=== PATIENT | female | born 1935 | race Caucasian/White ===

== ENCOUNTER 2019-07-20 09:28 | Inpatient (IN) ==
[2019-07-20] MEDS ORDERED: CeFAZolin Syr 2,000MG/20 ML 2,000 MG/20 ML SYRINGE IVPB ONE (09:51)
[2019-07-20] MEDS ORDERED: Albuterol 2.5 MG/3 ML NEBULIZER IH PRN (09:51)
[2019-07-20] MEDS ORDERED: Albuterol 2.5 MG/3 ML NEBULIZER ONE (09:59)
[2019-07-20] MEDS ORDERED: Ringers Solution, Lactated 1,000 ML IVC SCH ×2 (10:00→14:08)
[2019-07-20] MEDS ORDERED: Acetaminophen IV 1,000 MG/100 ML INFUS..BTL IVPB ONE (10:01)
[2019-07-20] MEDS ORDERED: Famotidine 20 MG/2 ML VIAL IVP ONE (10:01)
[2019-07-20] MEDS ORDERED: *HR* HYDROmorphone 2 MG TABLET PO PRN (10:03)
[2019-07-20] MEDS ORDERED: *HR* Promethazine 25 MG/ML VIAL IVP PRN (10:03)
[2019-07-20] MEDS ORDERED: *HR* Labetalol 20 MG/4 ML SYRINGE IVP PRN (10:03)
[2019-07-20] MEDS ORDERED: Lidocaine -MPF 2% 2 ML VIAL ONE ×2 (10:18→10:19)
[2019-07-20] MEDS ORDERED: *HR* FentaNYL (PF) 100 MCG/2 ML VIAL ONE (10:18)
[2019-07-20] MEDS ORDERED: Ondansetron 4 MG/2 ML VIAL ONE (10:18)
[2019-07-20] MEDS ORDERED: Dexamethasone 4 MG/ML VIAL ONE (10:18)
[2019-07-20] MEDS ORDERED: *HR* Propofol 200 MG/20 ML VIAL IVP ONE (10:19)
[2019-07-20] MEDS ORDERED: Lidocaine HCL 4 ML Topical Solution (Laryng-O-Jet Kit Sterile Pak) TP ONE (10:23)
[2019-07-20] MEDS ORDERED: ROPIVACAINE/PF/NS 0.25% 1 EACH SYRINGE INTRAART ONE (10:45)
[2019-07-20] MEDS ORDERED: Ropivacaine/PF 0.5% 30 ML VIAL ONE (10:45)
[2019-07-20 11:15] LABS: Basophils % 0.2 %; Eosinophils % 0.1 %; Hematocrit 43.7 % (35.3-44.9); Hemoglobin 14.5 g/dL (11.5-15.4); Immature Granulocytes % 0.6 % (0-4); Lymphocytes # 1.4 K/mcL (0.6-4.6); Lymphocytes % 13.7 %; Mean Corpuscular HGB Conc 33.2 g/dL (31.6-35.5); Mean Corpuscular Hemoglobin 30.1 pg (28.0-33.3); Mean Corpuscular Volume 90.7 fL (83.0-100.0); Mean Platelet Volume 10.5 fL (9.4-12.4); Monocytes # 0.3 K/mcL (0.0-1.3); Monocytes % 3.2 %; Neutrophils # 8.5 K/mcL (1.6-8.9); Platelet Count 224 K/mcL (140-400); Red Blood Count 4.82 M/mcL (3.82-4.97); Red Cell Distribution Width 14.9 % (11.5-14.5); Segmented Neutrophils % 82.2 %; White Blood Count 10.3 K/mcL (4.3-11.1)
[2019-07-20 11:36] LABS: BUN/Creatinine Ratio 23 (6-26); Blood Urea Nitrogen 19 mg/dL (8-23); Calcium 9.2 mg/dL (8.6-10.3); Carbon Dioxide 24 mEq/L (23-29); Chloride 103 mEq/L (98-107); Glucose 95 mg/dL (70-105); Osmolality,Calculated 288 (280-300); Potassium 3.8 mEq/L (3.5-5.1); Sodium 138 mEq/L (136-145); eGFR For African Americans > 60 (> 60); eGFR For Non-African Americans > 60 (> 60)
[2019-07-20] MEDS: *HR* OxyCODONE Immed Rel 5 MG TABLET PO PRN ×2 (13:11→13:16)
[2019-07-20 13:22] LABS: Hemoglobin 12.8 g/dL (11.5-15.4)
[2019-07-20] MEDS ORDERED: Ringers Solution, Lactated 1,000 ML ONE (13:32)
[2019-07-20] MEDS ORDERED: MOM Conc 10 ML UD.LIQ PO PRN (14:08)
[2019-07-20] MEDS ORDERED: MAGNESIUM HYDROXIDE 1200 MG PO PRN (14:08)
[2019-07-20] MEDS ORDERED: Sennosides 8.6 MG TABLET PO PRN (14:08)
[2019-07-20] MEDS ORDERED: Ondansetron 4 MG/2 ML VIAL IVP PRN (14:08)
[2019-07-20] MEDS ORDERED: Naloxone 0.4 MG/ML INJ IVP PRN (14:08)
[2019-07-20] MEDS: ceFAZolin 2,000 MG in 0.9 % Sodium Chloride 100 ML IVPB SCH (16:38)
[2019-07-20] MEDS: *HR* Enoxaparin 30 MG/0.3 ML SYRINGE SQ SCH (16:45)
[2019-07-20] MEDS ORDERED: *HR* Enoxaparin 30 MG/0.3 ML SYRINGE SQ SCH (18:00)
[2019-07-20] MEDS: Budesonide/Formoterol 160/4.5 1 PUFF INH IH SCH (20:25)
[2019-07-20] MEDS: Tiotropium 18 MCG inhalation IH SCH (20:25)
[2019-07-21] MEDS: ceFAZolin 2,000 MG in 0.9 % Sodium Chloride 100 ML IVPB SCH (00:46)
[2019-07-21] MEDS: Albuterol 2.5 MG/3 ML NEBULIZER IH PRN ×3 (00:52→20:21)
[2019-07-21 05:00] LABS: Hematocrit 34.9 % (35.3-44.9); Hemoglobin 11.4 g/dL (11.5-15.4)
[2019-07-21 05:20] LABS: BUN/Creatinine Ratio 21 (6-26); Blood Urea Nitrogen 22 mg/dL (8-23); Calcium 8.4 mg/dL (8.6-10.3); Carbon Dioxide 26 mEq/L (23-29); Chloride 100 mEq/L (98-107); Glucose 132 mg/dL (70-105); Osmolality,Calculated 287 (280-300); Potassium 4.6 mEq/L (3.5-5.1); Sodium 136 mEq/L (136-145); eGFR For African Americans > 60 (> 60); eGFR For Non-African Americans 50 (> 60)
[2019-07-21] MEDS: *HR* Enoxaparin 30 MG/0.3 ML SYRINGE SQ SCH ×2 (06:17→18:05)
[2019-07-21] MEDS: Budesonide/Formoterol 160/4.5 1 PUFF INH IH SCH ×2 (07:56→20:15)
[2019-07-21] MEDS: predniSONE 10 MG TABLET PO SCH (09:39)
[2019-07-21] MEDS: amLODIPine 5 MG TABLET PO SCH (09:40)
[2019-07-21] MEDS: Multivit/Ca/Min/Fe/FA 1 TAB TABLET PO SCH (09:40)
[2019-07-21] MEDS: Furosemide 20 MG TABLET PO SCH (09:41)
[2019-07-21] MEDS: *HR* OxyCODONE Immed Rel 5 MG TABLET PO PRN (15:12)
[2019-07-21] MEDS: Tiotropium 18 MCG inhalation IH SCH (20:16)
[2019-07-21] MEDS: *HR* OxyCODONE/APAP 5/325 TABLET PO PRN (23:10)
[2019-07-22 03:51] LABS: Hematocrit 35.4 % (35.3-44.9); Hemoglobin 11.7 g/dL (11.5-15.4)
[2019-07-22 04:02] LABS: Calcium 8.9 mg/dL (8.6-10.3); Potassium 4.2 mEq/L (3.5-5.1)
[2019-07-22] MEDS: *HR* Enoxaparin 30 MG/0.3 ML SYRINGE SQ SCH ×2 (05:45→17:08)
[2019-07-22] MEDS: *HR* OxyCODONE Immed Rel 5 MG TABLET PO PRN (05:45)
[2019-07-22] MEDS: Budesonide/Formoterol 160/4.5 1 PUFF INH IH SCH ×2 (08:25→21:21)
[2019-07-22] MEDS: Multivit/Ca/Min/Fe/FA 1 TAB TABLET PO SCH (08:49)
[2019-07-22] MEDS: amLODIPine 5 MG TABLET PO SCH (08:49)
[2019-07-22] MEDS: Furosemide 20 MG TABLET PO SCH (08:49)
[2019-07-22] MEDS: predniSONE 10 MG TABLET PO SCH (08:49)
[2019-07-22] MEDS: Ringers Solution, Lactated 1,000 ML IVC SCH ×2 (10:18→18:24)
[2019-07-22] MEDS ORDERED: DiphenhydraMINE CREAM 28.4 GM TUBE TP PRN (13:51)
[2019-07-22 17:05] LABS: Calcium 8.9 mg/dL (8.6-10.3); Potassium 4.1 mEq/L (3.5-5.1)
[2019-07-22] MEDS: *HR* OxyCODONE/APAP 5/325 TABLET PO PRN (17:06)
[2019-07-23] MEDS: Tiotropium 18 MCG inhalation IH SCH (03:55)
[2019-07-23] MEDS: *HR* Enoxaparin 30 MG/0.3 ML SYRINGE SQ SCH (06:29)
[2019-07-23 07:13] LABS: Hematocrit 32.7 % (35.3-44.9); Hemoglobin 10.8 g/dL (11.5-15.4)
[2019-07-23 07:26] LABS: BUN/Creatinine Ratio 26 (6-26); Blood Urea Nitrogen 22 mg/dL (8-23); Calcium 8.8 mg/dL (8.6-10.3); Carbon Dioxide 29 mEq/L (23-29); Chloride 99 mEq/L (98-107); Glucose 83 mg/dL (70-105); Osmolality,Calculated 292 (280-300); Potassium 3.3 mEq/L (3.5-5.1); Sodium 140 mEq/L (136-145); eGFR For African Americans > 60 (> 60); eGFR For Non-African Americans > 60 (> 60)
[2019-07-23] MEDS: Budesonide/Formoterol 160/4.5 1 PUFF INH IH SCH (07:41)
[2019-07-23] MEDS: amLODIPine 5 MG TABLET PO SCH (08:26)
[2019-07-23] MEDS: Multivit/Ca/Min/Fe/FA 1 TAB TABLET PO SCH (08:27)
[2019-07-23] MEDS: predniSONE 10 MG TABLET PO SCH (08:27)
[2019-07-23 10:58] VITALS: BP 153/84
[2019-07-25] MEDS ORDERED: NON-FORMULARY MEDICATION 1 EACH EACH (Alendronate Sodium 70 MG) PO SCH (11:35)
== END 2019-07-23 12:59 | DRG 322 ==
LOC: SAMDAY 09:28 → 3NENU 14:08
PROVIDERS: ADMIT Orthopaedic Surgery; ATTEND Orthopaedic Surgery

== ENCOUNTER 2021-06-28 23:07 | Inpatient (IN) ==
[2021-06-28] MEDS ORDERED: Isovue-370 500 ML BOTTLE IVP ONE (23:13)
[2021-06-28 23:46] LABS: Hematocrit 45.2 % (35.3-44.9); Hemoglobin 14.3 g/dL (11.5-15.4); Mean Corpuscular HGB Conc 31.6 g/dL (31.6-35.5); Mean Corpuscular Hemoglobin 29.7 pg (28.0-33.3); Mean Platelet Volume 10.2 fL (9.4-12.4); Platelet Count 159 K/mcL (140-400); Red Blood Count 4.81 M/mcL (3.82-4.97); Red Cell Distribution Width 15.7 % (11.5-14.5); White Blood Count 7.7 K/mcL (4.3-11.1)
[2021-06-28 23:48] LABS: INR 1.1; Prothrombin Time 12.2 Seconds (9.4-12.1)
[2021-06-28 23:51] LABS: Activated Partial Thrombo Time 26.4 Seconds (26.0-36.0)
[2021-06-29] LABS: BUN/Creatinine Ratio 21 (6-26); Blood Urea Nitrogen 21 mg/dL (8-23); Calcium 8.6 mg/dL (8.6-10.3); Carbon Dioxide 32 mEq/L (23-29); Chloride 93 mEq/L (98-107); Ethanol < 10 mg/dL (Less than 10); Glucose 110 mg/dL (70-105); Osmolality,Calculated 284 (280-300); Potassium 4.3 mEq/L (3.5-5.1); Sodium 135 mEq/L (136-145); eGFR For African Americans > 60 (> 60); eGFR For Non-African Americans 52 (> 60)
[2021-06-29 00:19] LABS: Influenza A PCR Negative (Negative); Influenza B PCR Negative (Negative); Resp. Syncytial Virus PCR Negative (Negative)
[2021-06-29 00:19] LABS: Troponin I 0.04 ng/mL (< 0.04)
[2021-06-29 00:21] LABS: SARS-CoV-2 by PCR (In House) Negative (Negative)
[2021-06-29 00:41] LABS: Bacteria,Urine Few per hpf (None-Few); Bilirubin,Urine Negative (Negative); Blood,Urine Trace (Negative); Clarity,Urine Clear (Clear); Color,Urine Light-Yellow (Yellow); Glucose,Urine (UA) Normal (Normal); Ketones,Urine Negative (Negative); Leukocyte Esterase,Urine Trace (Negative); Mucus,Urine Few per lpf (None-Few); Nitrite,Urine Negative (Negative); PH,Urine 5.5 pH Units (5.0-8.0); Protein,Urine Negative (Neg-Trace); RBC,Urine 0-3 per hpf (0-3); Specific Gravity,Urine 1.008 (1.010-1.025); Squamous Epithelial Cell,Urine Few per hpf (None-Few); Urobilinogen,Urine Normal (Normal)
[2021-06-29 00:49] LABS: Amphetamine Screen,Urine Negative ng/mL (Cutoff=1000); Barbiturate Screen,Urine Negative ng/mL (Cutoff=200); Benzodiazepines Screen,Urine Negative ng/mL (Cutoff=200); Cannabinoid Screen,Urine Negative ng/mL (Cutoff = 50); Cocaine Screen,Urine Negative ng/mL (Cutoff= 300); Opiate Screen,Urine Negative ng/mL (Cutoff=300); Phencyclidine Screen,Urine Negative ng/mL (Cutoff=25)
[2021-06-29] MEDS ORDERED: cefTRIAXone 1,000 MG in Water for inj. (sterile) 10 ML IVP ONE (01:23)
[2021-06-29] MEDS ORDERED: Perflutren Lipid Microsphere 1.3 ML in 0.9 % Sodium Chloride 8.7 ML IVP PRN ×2 (02:53→13:09)
[2021-06-29] MEDS ORDERED: Naloxone 0.4 MG/ML INJ IVP PRN (02:53)
[2021-06-29 06:19] LABS: INR 1.1; Prothrombin Time 11.9 Seconds (9.4-12.1)
[2021-06-29 06:34] LABS: Chol/HDL Ratio 2.3 (0-4.9)
[2021-06-29 06:37] LABS: Alanine Aminotransferase 34 Units/L (7-52); Albumin 3.9 g/dL (3.5-5.7); Albumin/Globulin Ratio 1.9 (1.1-2.2); Alkaline Phosphatase 39 Units/L (34-104); Aspartate Amino Transferase 17 Units/L (13-39); BUN/Creatinine Ratio 21 (6-26); Bilirubin,Total 0.6 mg/dL (0.3-1.0); Blood Urea Nitrogen 21 mg/dL (8-23); Calcium 8.9 mg/dL (8.6-10.3); Carbon Dioxide 31 mEq/L (23-29); Chloride 96 mEq/L (98-107); Chol/HDL Ratio 2.3 (0-4.9); Cholesterol 244 mg/dL (< 200); Globulin 2.1 g/dL (2.4-3.5); Glucose 81 mg/dL (70-105); HDL Cholesterol 105 mg/dL (40-59); LDL Cholesterol,Calculated 111 mg/dL (< 100); Osmolality,Calculated 286 (280-300); Potassium 3.7 mEq/L (3.5-5.1); Sodium 137 mEq/L (136-145); Triglycerides 139 mg/dL (< 150); Troponin I 0.05 ng/mL (< 0.04); eGFR For African Americans > 60 (> 60); eGFR For Non-African Americans 52 (> 60)
[2021-06-29 06:45] LABS: Thyroid Stimulating Hormone 3.179 mcIU/mL (0.340-5.600)
[2021-06-29 08:32] LABS: Estimated Average Glucose 134 mg/dl; Hemoglobin A1C 6.3 %
[2021-06-29] MEDS ORDERED: lisinopriL 10 MG TABLET PO SCH (09:00)
[2021-06-29 11:15] LABS: Folate 16.3 ng/mL (3.0-16.0)
[2021-06-29] MEDS ORDERED: Ipratropium/Albuterol Neb 3 ML ONE (15:35)
[2021-06-29] MEDS: Ipratropium/Albuterol Neb 3 ML IH PRN (15:39)
[2021-06-30 02:21] LABS: Hematocrit 45.8 % (35.3-44.9); Hemoglobin 14.4 g/dL (11.5-15.4); Mean Corpuscular HGB Conc 31.4 g/dL (31.6-35.5); Mean Corpuscular Hemoglobin 29.4 pg (28.0-33.3); Mean Corpuscular Volume 93.7 fL (83.0-100.0); Mean Platelet Volume 10.6 fL (9.4-12.4); Platelet Count 158 K/mcL (140-400); Red Blood Count 4.89 M/mcL (3.82-4.97); White Blood Count 7.4 K/mcL (4.3-11.1)
[2021-06-30 02:27] LABS: BUN/Creatinine Ratio 20 (6-26); Blood Urea Nitrogen 19 mg/dL (8-23); Calcium 8.8 mg/dL (8.6-10.3); Carbon Dioxide 29 mEq/L (23-29); Chloride 98 mEq/L (98-107); Glucose 75 mg/dL (70-105); Osmolality,Calculated 285 (280-300); Potassium 3.5 mEq/L (3.5-5.1); Sodium 137 mEq/L (136-145); eGFR For African Americans > 60 (> 60); eGFR For Non-African Americans 57 (> 60)
[2021-06-30] MEDS: *HR* Enoxaparin 40 MG/0.4 ML SYRINGE SQ SCH (05:41)
[2021-06-30] MEDS: Ipratropium/Albuterol Neb 3 ML IH PRN ×3 (07:58→16:06)
[2021-06-30] MEDS ORDERED: Furosemide 20 MG/2 ML VIAL IVP ONE (08:18)
[2021-06-30] MEDS: predniSONE 20 MG TABLET PO SCH (08:31)
[2021-06-30] MEDS: Azithromycin 500 MG in 0.9 % Sodium Chloride 250 ML IVPB SCH (08:34)
[2021-06-30] MEDS: cefTRIAXone 1,000 MG in 0.9 % Sodium Chloride Mini Bag 100 ML IVPB SCH (08:34)
[2021-07-01] MEDS: *HR* Enoxaparin 40 MG/0.4 ML SYRINGE SQ SCH (05:31)
[2021-07-01] MEDS: cefTRIAXone 1,000 MG in 0.9 % Sodium Chloride Mini Bag 100 ML IVPB SCH (08:15)
[2021-07-01] MEDS: amLODIPine 5 MG TABLET PO SCH (08:15)
[2021-07-01] MEDS: predniSONE 20 MG TABLET PO SCH (08:15)
[2021-07-01] MEDS: Azithromycin 500 MG in 0.9 % Sodium Chloride 250 ML IVPB SCH (08:16)
[2021-07-01] MEDS: Ipratropium/Albuterol Neb 3 ML IH PRN (09:26)
[2021-07-01 10:59] LABS: Adenovirus Not Detected (Not Detect); Coronavirus 229E Not Detected (Not Detect); Coronavirus HKU1 Not Detected (Not Detect); Coronavirus NL63 Not Detected (Not Detect); Coronavirus OC43 Not Detected (Not Detect); Human Metapneumovirus Not Detected (Not Detect); Human Rhinovirus/Enterovirus Not Detected (Not Detect); Influenza A Subtype 2009 H1 Not Detected (Not Detect); Influenza B Not Detected (Not Detect)
[2021-07-01 11:00] LABS: Bordetella Pertussis Not Detected (Not Detect); Chlamydophila pneumoniae Not Detected (Not Detect); Mycoplasma pneumoniae Not Detected (Not Detect); Parainfluenza Virus 1 Not Detected (Not Detect); Parainfluenza Virus 2 Not Detected (Not Detect); Parainfluenza Virus 3 Not Detected (Not Detect); Parainfluenza Virus 4 Not Detected (Not Detect); Respiratory Syncytial Virus Not Detected (Not Detect)
[2021-07-01 11:02] LABS: SARS-CoV-2 DETECTED (Not Detect)
[2021-07-01] MEDS ORDERED: Ipratropium/Albuterol Neb 3 ML IH SCH (12:15)
[2021-07-01] MEDS: Ipratropium 1 PUFF INHALER IH SCH ×3 (15:50→23:40)
[2021-07-02] MEDS: Ipratropium 1 PUFF INHALER IH SCH ×7 (03:53→23:34)
[2021-07-02] MEDS: *HR* Enoxaparin 40 MG/0.4 ML SYRINGE SQ SCH (05:51)
[2021-07-02] MEDS: amLODIPine 5 MG TABLET PO SCH (08:04)
[2021-07-02] MEDS: predniSONE 20 MG TABLET PO SCH (08:04)
[2021-07-02] MEDS: cefTRIAXone 1,000 MG in 0.9 % Sodium Chloride Mini Bag 100 ML IVPB SCH (08:05)
[2021-07-02] MEDS: Azithromycin 500 MG in 0.9 % Sodium Chloride 250 ML IVPB SCH (08:25)
[2021-07-02 10:32] LABS: Hemoglobin 14.4 g/dL (11.5-15.4); Mean Corpuscular Hemoglobin 29.7 pg (28.0-33.3); Mean Corpuscular Volume 92.8 fL (83.0-100.0); Mean Platelet Volume 10.5 fL (9.4-12.4); Platelet Count 172 K/mcL (140-400); Red Blood Count 4.85 M/mcL (3.82-4.97); Red Cell Distribution Width 15.9 % (11.5-14.5)
[2021-07-02 10:33] LABS: White Blood Count 11.6 K/mcL (4.3-11.1)
[2021-07-02 10:52] LABS: Calcium 8.4 mg/dL (8.6-10.3); Potassium 3.4 mEq/L (3.5-5.1)
[2021-07-02 11:16] LABS: ABG Base Excess 2 mEq/L (-2 to 3); ABG HCO3 27 mEq/L (21-27); ABG Oxygen Saturation 93 % (95-98); ABG PCO2 40 mmHg (35-45); ABG PH 7.43 pH Units (7.32-7.45); ABG PO2 64 mmHg (85-104); ABG TCO2 28 mEq/L (20-26)
[2021-07-02] MEDS ORDERED: Acetaminophen 325 MG TABLET PO PRN (16:33)
[2021-07-03] MEDS: Ipratropium 1 PUFF INHALER IH SCH ×6 (03:39→23:45)
[2021-07-03] MEDS: *HR* Enoxaparin 40 MG/0.4 ML SYRINGE SQ SCH (06:08)
[2021-07-03] MEDS: amLODIPine 5 MG TABLET PO SCH (09:59)
[2021-07-03] MEDS: predniSONE 20 MG TABLET PO SCH (09:59)
[2021-07-03] MEDS: cefTRIAXone 1,000 MG in 0.9 % Sodium Chloride Mini Bag 100 ML IVPB SCH (09:59)
[2021-07-03] MEDS: Cholecalciferol (D-3) 1,000 UNIT (25MCG) TABLET PO SCH (09:59)
[2021-07-03] MEDS ORDERED: methylPREDNISolone 125 MG/2 ML VIAL IVP ONE (17:19)
[2021-07-03] MEDS ORDERED: Isovue-370 500 ML BOTTLE IVP ONE (17:21)
[2021-07-04] MEDS: Ipratropium 1 PUFF INHALER IH SCH ×5 (03:45→19:58)
[2021-07-04] MEDS: *HR* Enoxaparin 40 MG/0.4 ML SYRINGE SQ SCH (05:23)
[2021-07-04] MEDS: Cholecalciferol (D-3) 1,000 UNIT (25MCG) TABLET PO SCH (08:00)
[2021-07-04] MEDS: amLODIPine 5 MG TABLET PO SCH (08:00)
[2021-07-04] MEDS: predniSONE 20 MG TABLET PO SCH ×2 (08:00→08:21)
[2021-07-04 10:22] LABS: Basophils % 0.3 %; Hemoglobin 14.7 g/dL (11.5-15.4); Immature Granulocytes % 2.3 % (0-4); Lymphocytes # 0.9 K/mcL (0.6-4.6); Lymphocytes % 8.2 %; Mean Corpuscular HGB Conc 31.3 g/dL (31.6-35.5); Mean Corpuscular Hemoglobin 29.3 pg (28.0-33.3); Mean Corpuscular Volume 93.8 fL (83.0-100.0); Mean Platelet Volume 10.7 fL (9.4-12.4); Monocytes # 0.1 K/mcL (0.0-1.3); Monocytes % 1.1 %; Neutrophils # 9.5 K/mcL (1.6-8.9); Platelet Count 195 K/mcL (140-400); Red Blood Count 5.01 M/mcL (3.82-4.97); Red Cell Distribution Width 16.1 % (11.5-14.5); Segmented Neutrophils % 88.1 %; White Blood Count 10.8 K/mcL (4.3-11.1)
[2021-07-04 10:43] LABS: Alanine Aminotransferase 55 Units/L (7-52); Albumin/Globulin Ratio 1.5 (1.1-2.2); Alkaline Phosphatase 46 Units/L (34-104); Aspartate Amino Transferase 35 Units/L (13-39); Bilirubin,Total 0.6 mg/dL (0.3-1.0); Blood Urea Nitrogen 20 mg/dL (8-23); Calcium 8.9 mg/dL (8.6-10.3); Carbon Dioxide 30 mEq/L (23-29); Chloride 99 mEq/L (98-107); Globulin 2.7 g/dL (2.4-3.5); Glucose 256 mg/dL (70-105); Osmolality,Calculated 297 (280-300); Potassium 4.1 mEq/L (3.5-5.1); Sodium 138 mEq/L (136-145); Total Protein 6.7 g/dL (6.4-8.9)
[2021-07-04 11:36] LABS: BUN/Creatinine Ratio 19 (6-26); eGFR For African Americans > 60 (> 60); eGFR For Non-African Americans 51 (> 60)
[2021-07-05] MEDS: Ipratropium 1 PUFF INHALER IH SCH ×6 (00:22→19:56)
[2021-07-05 05:27] LABS: Basophils # 0.1 K/mcL (0.0-0.2); Basophils % 0.4 %; Eosinophils % 0.1 %; Hematocrit 42.6 % (35.3-44.9); Hemoglobin 13.6 g/dL (11.5-15.4); Lymphocytes # 1.2 K/mcL (0.6-4.6); Lymphocytes % 8.1 %; Mean Corpuscular HGB Conc 31.9 g/dL (31.6-35.5); Mean Corpuscular Hemoglobin 29.8 pg (28.0-33.3); Mean Corpuscular Volume 93.4 fL (83.0-100.0); Mean Platelet Volume 10.9 fL (9.4-12.4); Monocytes # 0.7 K/mcL (0.0-1.3); Monocytes % 4.7 %; Neutrophils # 12.8 K/mcL (1.6-8.9); Nucleated Red Blood Cells 0.1 /100 WBC (0); Platelet Count 213 K/mcL (140-400); Red Blood Count 4.56 M/mcL (3.82-4.97); Red Cell Distribution Width 15.8 % (11.5-14.5); Segmented Neutrophils % 83.7 %; White Blood Count 15.3 K/mcL (4.3-11.1)
[2021-07-05 05:45] LABS: Albumin 3.8 g/dL (3.5-5.7); Albumin/Globulin Ratio 1.7 (1.1-2.2); Bilirubin,Total 0.6 mg/dL (0.3-1.0); Calcium 8.5 mg/dL (8.6-10.3); Globulin 2.3 g/dL (2.4-3.5); Potassium 3.9 mEq/L (3.5-5.1); Total Protein 6.1 g/dL (6.4-8.9)
[2021-07-05] MEDS ORDERED: *HR* Enoxaparin 40 MG/0.4 ML SYRINGE SQ SCH (06:00)
[2021-07-05] MEDS ORDERED: *HR* Enoxaparin 30 MG/0.3 ML SYRINGE SQ SCH (06:00)
[2021-07-05] MEDS: amLODIPine 5 MG TABLET PO SCH (09:14)
[2021-07-05] MEDS: Cholecalciferol (D-3) 1,000 UNIT (25MCG) TABLET PO SCH (09:15)
[2021-07-05] MEDS: predniSONE 20 MG TABLET PO SCH (09:16)
[2021-07-05 16:12] VITALS: BP 155/93; PULSE 94; TEMP 98.3
[2021-07-05 20:10] VITALS: O2SAT 93
== END 2021-07-05 21:35 | disposition home health service (06) | DRG 45 ==
LOC: EMEROOARM 23:07 → 3BNU 23:07 → SUATTDRO 06-29 02:47 → 3BNU 06-29 03:18
PROVIDERS: ADMIT Family Medicine; ATTEND Registered Nurse

== ENCOUNTER 2021-07-17 05:42 | Observation (INO) ==
[2021-07-17] MEDS ORDERED: 0.9 % Sodium Chloride 1,000 ML IVC ONE (06:01)
[2021-07-17] MEDS: Pantoprazole 40 MG in 0.9 % Sodium Chloride Mini Bag 100 ML IVC SCH ×4 (06:22→21:17)
[2021-07-17 08:14] LABS: Basophils % 0.3 %; Eosinophils % 0.1 %; Hematocrit 34.1 % (35.3-44.9); Hemoglobin 10.7 g/dL (11.5-15.4); Immature Granulocytes % 2.8 % (0-4); Lymphocytes # 1.3 K/mcL (0.6-4.6); Lymphocytes % 11.1 %; Mean Corpuscular HGB Conc 31.4 g/dL (31.6-35.5); Mean Corpuscular Hemoglobin 29.8 pg (28.0-33.3); Mean Platelet Volume 9.9 fL (9.4-12.4); Monocytes # 0.8 K/mcL (0.0-1.3); Monocytes % 7.3 %; Neutrophils # 8.9 K/mcL (1.6-8.9); Platelet Count 154 K/mcL (140-400); Red Blood Count 3.59 M/mcL (3.82-4.97); Red Cell Distribution Width 16.6 % (11.5-14.5); Segmented Neutrophils % 78.4 %; White Blood Count 11.3 K/mcL (4.3-11.1)
[2021-07-17] MEDS: Octreotide 400 MCG in 0.9 % Sodium Chloride 100 ML IVC SCH ×2 (08:16→22:30)
[2021-07-17 08:21] LABS: INR 1.1; Prothrombin Time 12.5 Seconds (9.4-12.1)
[2021-07-17] MEDS ORDERED: Ipratropium/Albuterol Neb 3 ML IH ONE (08:22)
[2021-07-17 08:24] LABS: Activated Partial Thrombo Time 22.2 Seconds (26.0-36.0)
[2021-07-17 08:42] LABS: Calcium 7.7 mg/dL (8.6-10.3); Potassium 4.6 mEq/L (3.5-5.1)
[2021-07-17 09:04] LABS: Troponin I 0.06 ng/mL (< 0.04)
[2021-07-17] MEDS ORDERED: 0.9 % Sodium Chloride 500 ML IVC ONE (09:07)
[2021-07-17] MEDS ORDERED: Acetaminophen 325 MG TABLET PO PRN (09:34)
[2021-07-17] MEDS ORDERED: Naloxone 0.4 MG/ML INJ IVP PRN (09:34)
[2021-07-17] MEDS ORDERED: Ondansetron 4 MG/2 ML VIAL IVP PRN (09:34)
[2021-07-17] MEDS ORDERED: D5% in Water 1,000 ML IVC PRN (10:10)
[2021-07-17] MEDS ORDERED: *HR* Dextrose 50 % in Water (Syg) 50 ML SYRINGE IVP PRN (10:10)
[2021-07-17] MEDS ORDERED: Dextrose Gel 15 GM/37.5 ML TUBE PO PRN ×2 (10:10)
[2021-07-17 11:39] LABS: Estimated Average Glucose 140 mg/dl; Hemoglobin A1C 6.5 %
[2021-07-17] MEDS: Insulin LISPRO 300 UNITS/3 ML VIAL SUBQ SCH ×3 (11:51→23:46)
[2021-07-17] MEDS: 0.9 % Sodium Chloride 1,000 ML IVC SCH (12:30)
[2021-07-17 14:30] LABS: Hematocrit 33.9 % (35.3-44.9); Hemoglobin 9.9 g/dL (11.5-15.4)
[2021-07-17] MEDS ORDERED: SODIUM CHLORIDE/NAHCO3/KCL/PEG 4,000 ML SOLN.RECON PO ONE (17:00)
[2021-07-17 22:15] LABS: Hematocrit 28.8 % (35.3-44.9)
[2021-07-18] MEDS: 0.9 % Sodium Chloride 1,000 ML IVC SCH ×2 (01:09→16:56)
[2021-07-18 01:28] LABS: Basophils % 0.3 %; Eosinophils # 0.1 K/mcL (0.0-0.6); Eosinophils % 0.4 %; Hematocrit 30.1 % (35.3-44.9); Hemoglobin 9.2 g/dL (11.5-15.4); Immature Granulocytes % 2.5 % (0-4); Lymphocytes # 1.7 K/mcL (0.6-4.6); Mean Corpuscular HGB Conc 30.6 g/dL (31.6-35.5); Mean Corpuscular Hemoglobin 29.8 pg (28.0-33.3); Mean Corpuscular Volume 97.4 fL (83.0-100.0); Mean Platelet Volume 10.6 fL (9.4-12.4); Monocytes # 0.7 K/mcL (0.0-1.3); Monocytes % 5.9 %; Neutrophils # 9.1 K/mcL (1.6-8.9); Nucleated Red Blood Cells 0.2 /100 WBC (0); Platelet Count 129 K/mcL (140-400); Red Blood Count 3.09 M/mcL (3.82-4.97); Segmented Neutrophils % 76.9 %; White Blood Count 11.8 K/mcL (4.3-11.1)
[2021-07-18 01:34] LABS: Alanine Aminotransferase 35 Units/L (7-52); Albumin/Globulin Ratio 1.9 (1.1-2.2); Alkaline Phosphatase 35 Units/L (34-104); Aspartate Amino Transferase 17 Units/L (13-39); BUN/Creatinine Ratio 29 (6-26); Bilirubin,Total 0.6 mg/dL (0.3-1.0); Blood Urea Nitrogen 30 mg/dL (8-23); Calcium 6.7 mg/dL (8.6-10.3); Carbon Dioxide 21 mEq/L (23-29); Chloride 105 mEq/L (98-107); Globulin 1.6 g/dL (2.4-3.5); Glucose 128 mg/dL (70-105); Osmolality,Calculated 284 (280-300); Potassium 4.2 mEq/L (3.5-5.1); Sodium 133 mEq/L (136-145); Total Protein 4.6 g/dL (6.4-8.9); eGFR For African Americans > 60 (> 60); eGFR For Non-African Americans 50 (> 60)
[2021-07-18] MEDS: Pantoprazole 40 MG in 0.9 % Sodium Chloride Mini Bag 100 ML IVC SCH ×4 (02:32→17:00)
[2021-07-18] MEDS: Insulin LISPRO 300 UNITS/3 ML VIAL SUBQ SCH ×3 (05:38→16:55)
[2021-07-18 09:54] LABS: Lipase 15 Units/L (11-82)
[2021-07-18] MEDS ORDERED: Lidocaine -MPF 2% 5 ML VIAL ONE (12:45)
[2021-07-18] MEDS ORDERED: Ipratropium/Albuterol Neb 3 ML ONE (13:49)
[2021-07-18] MEDS ORDERED: Simethicone 40 MG/0.6 ML MLS IR ONE (14:19)
[2021-07-18] MEDS ORDERED: Pantoprazole 40 MG VIAL ONE (16:45)
[2021-07-18] MEDS: Octreotide 400 MCG in 0.9 % Sodium Chloride 100 ML IVC SCH (17:42)
[2021-07-18] MEDS ORDERED: Albuterol 2.5 MG/3 ML NEBULIZER IH PRN (18:09)
[2021-07-18] MEDS: predniSONE 10 MG TABLET PO SCH (20:44)
[2021-07-18 22:45] LABS: Hematocrit 21.9 % (35.3-44.9)
[2021-07-18 22:46] LABS: Hemoglobin 6.9 g/dL (11.5-15.4)
[2021-07-19] MEDS: Insulin LISPRO 300 UNITS/3 ML VIAL SUBQ SCH ×5 (00:01→20:48)
[2021-07-19 02:27] LABS: Hematocrit 22.9 % (35.3-44.9); Hemoglobin 7.3 g/dL (11.5-15.4); Mean Corpuscular HGB Conc 31.9 g/dL (31.6-35.5); Mean Corpuscular Hemoglobin 30.7 pg (28.0-33.3); Mean Corpuscular Volume 96.2 fL (83.0-100.0); Mean Platelet Volume 10.7 fL (9.4-12.4); Platelet Count 114 K/mcL (140-400); Red Blood Count 2.38 M/mcL (3.82-4.97); White Blood Count 10.7 K/mcL (4.3-11.1)
[2021-07-19 02:53] LABS: BUN/Creatinine Ratio 22 (6-26); Blood Urea Nitrogen 17 mg/dL (8-23); Calcium 6.6 mg/dL (8.6-10.3); Carbon Dioxide 23 mEq/L (23-29); Chloride 106 mEq/L (98-107); Glucose 118 mg/dL (70-105); Magnesium 1.6 mg/dL (1.6-2.6); Osmolality,Calculated 285 (280-300); Potassium 3.9 mEq/L (3.5-5.1); Sodium 136 mEq/L (136-145); eGFR For African Americans > 60 (> 60); eGFR For Non-African Americans > 60 (> 60)
[2021-07-19] MEDS: Octreotide 400 MCG in 0.9 % Sodium Chloride 100 ML IVC SCH (06:24)
[2021-07-19] MEDS: Tiotropium 10 INH DOSE IH SCH (07:39)
[2021-07-19] MEDS: amLODIPine 5 MG TABLET PO SCH (09:19)
[2021-07-19] MEDS: predniSONE 10 MG TABLET PO SCH ×2 (09:20→20:47)
[2021-07-19] MEDS ORDERED: Calcium Gluconate 1gm/50mL 1 GM/50 ML BAG IVPB ONE (09:49)
[2021-07-19] MEDS ORDERED: Magnesium Sulfate 1 GM/102 ML PIGGYBACK IVPB ONE (09:50)
[2021-07-19 11:33] LABS: Hematocrit 23.5 % (35.3-44.9); Hemoglobin 7.3 g/dL (11.5-15.4)
[2021-07-20 04:22] LABS: Hemoglobin 7.2 g/dL (11.5-15.4); Mean Corpuscular HGB Conc 31.3 g/dL (31.6-35.5); Mean Corpuscular Hemoglobin 30.1 pg (28.0-33.3); Mean Corpuscular Volume 96.2 fL (83.0-100.0); Platelet Count 120 K/mcL (140-400); Red Blood Count 2.39 M/mcL (3.82-4.97); White Blood Count 8.3 K/mcL (4.3-11.1)
[2021-07-20 04:40] LABS: BUN/Creatinine Ratio 16 (6-26); Blood Urea Nitrogen 14 mg/dL (8-23); Calcium 7.4 mg/dL (8.6-10.3); Carbon Dioxide 26 mEq/L (23-29); Chloride 104 mEq/L (98-107); Glucose 155 mg/dL (70-105); Osmolality,Calculated 284 (280-300); Potassium 3.9 mEq/L (3.5-5.1); Sodium 135 mEq/L (136-145); eGFR For African Americans > 60 (> 60); eGFR For Non-African Americans 60 (> 60)
[2021-07-20 04:46] LABS: VBG Ionized Calcium 1.12 mmol/L (1.15-1.35)
[2021-07-20] MEDS: Insulin LISPRO 300 UNITS/3 ML VIAL SUBQ SCH ×4 (08:05→21:09)
[2021-07-20] MEDS ORDERED: Calcium Gluconate 1gm/50mL 1 GM/50 ML BAG IVPB ONE (08:09)
[2021-07-20] MEDS: predniSONE 10 MG TABLET PO SCH ×2 (08:10→21:08)
[2021-07-20] MEDS: amLODIPine 5 MG TABLET PO SCH (08:10)
[2021-07-20] MEDS: Tiotropium 10 INH DOSE IH SCH (11:20)
[2021-07-20] MEDS ORDERED: Azithromycin 500 MG in 0.9 % Sodium Chloride 250 ML IVPB SCH (18:00)
[2021-07-21 05:48] LABS: Hemoglobin 7.6 g/dL (11.5-15.4); Mean Corpuscular HGB Conc 30.4 g/dL (31.6-35.5); Mean Corpuscular Hemoglobin 29.3 pg (28.0-33.3); Mean Corpuscular Volume 96.5 fL (83.0-100.0); Platelet Count 152 K/mcL (140-400); Red Blood Count 2.59 M/mcL (3.82-4.97); Red Cell Distribution Width 17.3 % (11.5-14.5); White Blood Count 9.8 K/mcL (4.3-11.1)
[2021-07-21 06:00] LABS: BUN/Creatinine Ratio 20 (6-26); Blood Urea Nitrogen 18 mg/dL (8-23); Carbon Dioxide 29 mEq/L (23-29); Chloride 104 mEq/L (98-107); Glucose 121 mg/dL (70-105); Osmolality,Calculated 287 (280-300); Potassium 4.5 mEq/L (3.5-5.1); Sodium 137 mEq/L (136-145); eGFR For African Americans > 60 (> 60); eGFR For Non-African Americans > 60 (> 60)
[2021-07-21 06:03] LABS: VBG Ionized Calcium 1.11 mmol/L (1.15-1.35)
[2021-07-21] MEDS: Insulin LISPRO 300 UNITS/3 ML VIAL SUBQ SCH ×2 (07:41→12:07)
[2021-07-21] MEDS: Tiotropium 10 INH DOSE IH SCH (07:46)
[2021-07-21] MEDS: predniSONE 10 MG TABLET PO SCH (07:57)
[2021-07-21] MEDS: amLODIPine 5 MG TABLET PO SCH (07:57)
[2021-07-21 10:22] VITALS: BP 117/68; PULSE 80; TEMP 98
[2021-07-21 13:44] VITALS: O2SAT 100
== END 2021-07-21 15:00 | disposition home health service (06) ==
LOC: EMEROOARM 05:42 → 2ANU 05:42 → SUATTDRO 09:28 → 2ANU 10:44
PROVIDERS: ADMIT General Practice; ATTEND Internal Medicine